=== PATIENT | male | born 1970 | race Caucasian/White ===

== ENCOUNTER 2018-08-20 13:46 | Emergency (ER) | payer SELFPAY ==
[2018-08-20 15:18] LABS: #Basophils 0.1 thou/uL (0.0-0.2); #Eosinphils 0.1 thou/uL (0.0-0.7); #Lymphocytes 1.4 thou/uL (1.20-3.40); #Monocytes 0.7 thou/uL (0.11-0.59); #Neutrophils 5.7 thou/uL (1.40-6.50); %Basophils 0.7 % (0.0-1.0); %Eosinophils 1.3 % (0.0-10.0); %Lymphocytes 17.9 % (21.0-51.0); %Monocytes 9.1 % (0.0-10.0); Hemoglobin 15.1 g/dL (14.0-18.0); Mean Corpuscular HGB CONC 33.2 g/dL (32.0-36.0); Mean Corpuscular Hemoglobin 29.8 pg (27.0-31.0); Mean Corpuscular Volume 89.6 fL (78.0-98.0); Mean Platelet Volume 7.7 fL (7.4-10.4); Platelet Count 255 thou/uL (130-400); RBC Distribution Width 11.7 % (11.5-14.5); Red Blood Cell (RBC) Count 5.06 mill/uL (4.70-6.10)
--- NOTE | 2018-08-20 15:27 | CT ---
CT ABDOMEN AND PELVIS WITHOUT CONTRAST: Comparison: None. History: Left flank pain. Technique: Multiple contiguous axial images were obtained in a CT of the abdomen and pelvis without c ontrast. Coronal reformats were performed. FINDINGS: There is a 5-6 mm calcification in the left ureterovesical junction with mild to moderate left hydron ephrosis. No right sided renal calcifications are seen. No left sided hydronephrosis is present. The liver, gallbladder, adrenal glands, spleen, and pancreas are unremarkable although evaluation is limited without IV contrast. NO free air, free fluid, or stranding changes are seen in the abdomen or pelvis. The large and small bowel are unremarkable. The pancreas is normal. There are mildly prominent retroperitoneal lymph node s. The largest measures 1.0 cm in short axis. Mild degenerative changes are seen in the spine. The visualized inferior thorax and abdominal wall so ft tissues are unremarkable. IMPRESSION: Left ureterovesical junction calcification with left sided hydronephrosis. POS: [facility]
[2018-08-20 15:35] LABS: ALT (SGPT) 46 U/L (8-55); AST (SGOT) 33 U/L (5-34); Alkaline Phosphatase 92 U/L (40-150); Anion Gap 10 mmol/L (10-20); BUN (Urea Nitrogen) 24 mg/dL (8.9-20.6); Bilirubin, Total 0.7 mg/dL (0.2-1.2); Calc. Creatinine Clearance 0 mL/min (70-130); Calcium 9.5 mg/dL (7.8-10.44); Carbon Dioxide 27 mmol/L (22-29); Chloride 104 mmol/L (98-107); Estimated GFR-MDRD 39; Globulin 2.8 g/dL (2.4-3.5); Glucose 134 mg/dL (70-105); Potassium 3.8 mmol/L (3.5-5.1); Protein, Total 6.8 g/dL (6.0-8.3); Sodium 137 mmol/L (136-145)
[2018-08-20] MEDS ORDERED: Ketorolac Tromethamine 30 MG/ML VIAL ONE (16:03)
[2018-08-20] MEDS ORDERED: Ondansetron PF 4 MG/2 ML Vial ONE (16:03)
[2018-08-20 17:19] LABS: Bilirubin Negative (Negative); Blood, Urine Small (Negative); Clarity CLEAR (Clear); Glucose, Urine (Dipstick) Negative (Negative); Leukocyte Negative (Negative); Nitrite Negative (Negative); Protein, Urine (Dipstick) Negative (Neg-Trace); Specific Gravity, Urine 1.017 (1.002-1.036)
[2018-08-20 17:24] LABS: Bacteria/HPF None Seen HPF (None Seen); Hyaline Casts/LPF 0-3 HYALINE CAST LPF (0-3 Hyaline); Squamous Epithelial None Seen HPF (0-3); WBC/HPF None Seen HPF (0-3)
== END 2018-08-20 17:42 | disposition home or self-care (01) ==
LOC: ERS 13:46
DX: N13.2 Hydronephrosis with renal and ureteral calculous obstruction (principal); E10.9 Type 1 diabetes mellitus without complications; R79.89 Other specified abnormal findings of blood chemistry
CPT/HCPCS: 36415; 74176; 80053; 81001; 83690; 85025; 96361; 96374; 96375; J1885; J2405